=== PATIENT | male | born 1965 | race Caucasian/White ===

== ENCOUNTER 2016-12-19 09:49 | Outpatient (RCR) | payer BC ==
--- OUTSIDE RECORDS SUMMARY | 2016-09-24 12:52 | XMS REPORT | Continuity of Care Document ---
Author Author [facility] Organization [facility] Address Unknown Phone Unavailable Care Team Providers Care Inventory Accountant Name Role Phone MESERET MARTINEZ MD PCP Insurance Providers Payer Name Policy Number Subscriber Name Relationship [employer] [id number] Catherine Roberts 20 Self / Same As Patient Advance Directives Directive Response Recorded Date/Time Advance Directives No 07/13/12 11:43am Health Care Power of Groover And Turner No 07/13/12 11:43am Organ Donor No 07/13/12 11:43am Problems No known problems or medical conditions. Medications Medication Dose Route Sig Days/Qty Instructions Order Date Discontinued Date Status Levothyroxine Sodium (Levothroid) 1 Each PO DAILY 10/27/11 Active Dexlansoprazole 30 Mg PO DAILY 10/27/11 Active Social History No social history. Hospital Discharge Instructions No hospital discharge instructions. Plan of Care No plan of care. Functional Status No functional status results. Allergies, Adverse Reactions, Alerts Allergen Type Severity Reaction Status Last Updated No Known Drug Allergies Active 10/27/11 Immunizations Name Given Type Date of Influenza Vaccine 07/10/11 Historical Vital Signs No known vital signs results. Results Laboratory Results Test Name Result Units Flags Reference Collection Date/Time Result Date/ Time Comments White Blood Count 7.1 10^3/uL 4.3-11.0 08/02/2014 9:08/02/2014 9: 19am Red Blood Count 5.00 10^6/uL 4.35-5.85 08/02/2014 9:08/02/2014 9: 19am Hemoglobin 15.0 G/DL 13.3-17.7 08/02/2014 9:08/02/2014 9:19am Hematocrit 42 % 40-54 08/02/2014 9:08/02/2014 9:19am Mean Corpuscular Volume 84 FL 80-99 08/02/2014 9:08/02/2014 9: 19am Mean Corpuscular Hemoglobin 30 PG 25-34 08/02/2014 9:08/02/2014 9: 19am Mean Corpuscular Hemoglobin Concent 36 G/DL 32-36 08/02/2014 9: 9:19am Red Cell Distribution Width 13.3 % 10.0-14.5 08/02/2014 9:2013 9:19am Platelet Count 211 10^3/uL 130-400 08/02/2014 9:08/02/2014 9:19am Mean Platelet Volume 10.7 FL H 7.4-10.4 08/02/2014 9:08/02/2014 9: 19am Neutrophils (%) (Auto) 68 % 42-75 08/02/2014 9:08/02/2014 9:19am Lymphocytes (%) (Auto) 20 % 12-44 08/02/2014 9:08/02/2014 9:19am Monocytes (%) (Auto) 9 % 0-12 08/02/2014 9:08/02/2014 9:19am Eosinophils (%) (Auto) 2 % 0-10 08/02/2014 9:08/02/2014 9:19am Basophils (%) (Auto) 1 % 0-10 08/02/2014 9:08/02/2014 9:19am Neutrophils # (Auto) 4.9 X 10^3 1.8-7.8 08/02/2014 9:08/02/2014 9: 19am Lymphocytes # (Auto) 1.5 X 10^3 1.0-4.0 08/02/2014 9:08/02/2014 9: 19am Monocytes # (Auto) 0.6 X 10^3 0.0-1.0 08/02/2014 9:08/02/2014 9: 19am Eosinophils # (Auto) 0.2 10^3/uL 0.0-0.3 08/02/2014 9:08/02/2014 9 :19am Basophils # (Auto) 0.0 10^3/uL 0.0-0.1 08/02/2014 9:08/02/2014 9: 19am Sodium Level 140 MMOL/L 135-145 08/02/2014 9:08/02/2014 9:42am Potassium Level 4.3 MMOL/L 3.6-5.0 08/02/2014 9:08/02/2014 9:42am Chloride Level 108 MMOL/L H 98-107 08/02/2014 9:08/02/2014 9:42am Carbon Dioxide Level 21 MMOL/L 21-32 08/02/2014 9:08/02/2014 9: 42am Blood Urea Nitrogen 15 MG/DL 7-18 08/02/2014 9:08/02/2014 9:42am Creatinine 1.24 MG/DL 0.60-1.30 08/02/2014 9:08/02/2014 9:42am BUN/Creatinine Ratio 12 08/02/2014 9:08/02/2014 9:42am Estimat Glomerular Filtration Rate > 60 08/02/2014 9:2013 9:42am GFR INTERPRETIVE DATA UNITS FOR ESTIMATED GFR (eGFR): mL/min/1.73 M2 REFERENCE RANGE FOR ESTIMATED GFR (eGFR) eGFR NORMAL eGFR >60 MODERATELY DECREASED eGFR 30-59 SEVERLY DECREASED eGFR 15-29 KIDNEY FAILURE <15 (OR DIALYSIS) Glucose Level 101 MG/DL 70-105 08/02/2014 9:08/02/2014 9:42am Calcium Level 9.3 MG/DL 8.5-10.1 08/02/2014 9:08/02/2014 9:42am Total Bilirubin 0.6 MG/DL 0.1-1.0 08/02/2014 9:08/02/2014 9:42am Alkaline Phosphatase 54 U/L 40-136 08/02/2014 9:14am 08/02/2014 9:42am Aspartate Amino Transf (AST/SGOT) 22 U/L 5-34 08/02/2014 9:14am 2013 9:42am Alanine Aminotransferase (ALT/SGPT) 36 U/L 0-55 08/02/2014 9:14am 08/02 9:42am Lactate Dehydrogenase 297 U/L H 125-220 08/02/2014 9:14am 08/02/2014 9: 42am Total Protein 7.0 G/DL 6.4-8.2 08/02/2014 9:14am 08/02/2014 9:42am Albumin 4.2 G/DL 3.2-4.5 08/02/2014 9:14am 08/02/2014 9:42am Procedures No known history of procedures. Encounters Encounter Location Date/Time Discharged Recurring Via [facility] 08/02/14 9:20am
--- OUTSIDE RECORDS SUMMARY | 2016-11-20 10:03 | XMS REPORT | Continuity of Care Document ---
Author Author [facility] Organization [facility] Address Unknown Phone Unavailable Care Team Providers Care Groover Operator Name Role Phone MESERET MARTINEZ MD PCP Insurance Providers Payer Name Policy Number Subscriber Name Relationship [employer] [id number] Catherine Roberts 20 Self / Same As Patient Advance Directives Directive Response Recorded Date/Time Advance Directives No 07/13/12 11:43am Health Care Power of Public Health Program Manager No 07/13/12 11:43am Organ Donor No 07/13/12 [...] Encounters Encounter Location Date/Time Discharged Recurring Via [facility] 08/02/14 9:20am
[2016-11-20 10:23] LABS: BASOPHILS % (AUTO) 1 % (0-10); EOSINOPHILS # (AUTO) 0.2 10^3/uL (0.0-0.3); EOSINOPHILS % (AUTO) 3 % (0-10); LYMPHOCYTES # (AUTO) 1.5 X 10^3 (1.0-4.0); LYMPHOCYTES % (AUTO) 25 % (12-44); MEAN CORPUSCULAR HEMOGLOBIN 29 PG (25-34); MEAN CORPUSCULAR HGB CONC 35 G/DL (32-36); MEAN CORPUSCULAR VOLUME 85 FL (80-99); MEAN PLATELET VOLUME 10.3 FL (7.4-10.4); MONOCYTES # (AUTO) 0.5 X 10^3 (0.0-1.0); MONOCYTES % (AUTO) 9 % (0-12); NEUTROPHILS # (AUTO) 3.8 X 10^3 (1.8-7.8); NEUTROPHILS % (AUTO) 63 % (42-75); PLATELET COUNT 235 10^3/uL (130-400)
[2016-11-20 11:07] LABS: ALANINE AMINOTRANSFERASE 25 U/L (0-55); ALBUMIN 4.5 G/DL (3.2-4.5); ANION GAP 9 MMOL/L (5-14); ASPARTATE AMINO TRANSFERASE 17 U/L (5-34); BILIRUBIN,TOTAL 0.6 MG/DL (0.1-1.0); BLOOD UREA NITROGEN 16 MG/DL (7-18); BUN/CREATININE RATIO 13; CALCIUM 9.6 MG/DL (8.5-10.1); CARBON DIOXIDE 25 MMOL/L (21-32); CHLORIDE 103 MMOL/L (98-107); CREATININE SERUM 1.23 MG/DL (0.60-1.30); GFR ESTIMATED > 60; GLUCOSE 90 MG/DL (70-105); LACTATE DEHYDROGENASE 208 U/L (125-220); POTASSIUM 4.5 MMOL/L (3.6-5.0); SODIUM 137 MMOL/L (135-145); TOTAL PROTEIN 7.2 G/DL (6.4-8.2)
[2016-11-21 07:41] LABS: ALPHA-FETO PROTEIN MARKER 2.8 ng/mL (1.5-10.0); HCG TUMOR MARKER <2 mIU/mL (0-4)
[~2016-12-19 09:49] MED LIST: DEXL30CA2 PO; LEVO125T6 PO
== END 2017-02-18 | disposition home or self-care (01) ==
LOC: ONC 09:49
PROVIDERS: ATTEND Internal Medicine Hematology & Oncology
DX: C62.11 Malignant neoplasm of descended right testis (principal); N18.3 Chronic kidney disease, stage 3 (moderate); Z85.79 Personal history of other malignant neoplasms of lymphoid, hematopoietic and related tissues; Z92.3 Personal history of irradiation; Z92.21 Personal history of antineoplastic chemotherapy; Z79.899 Other long term (current) drug therapy
CPT/HCPCS: 36415; 80053; 82105; 83615; 84403; 84702; 85025; 99213

== ENCOUNTER → 2016-12-23 | Outpatient (CLI) | payer BC ==
--- OUTSIDE RECORDS SUMMARY | 2016-12-23 08:47 | XMS REPORT | Continuity of Care Document ---
Author Author [facility] Organization [facility] Address Unknown Phone Unavailable Care Team Providers Care Oil Field Pipeline Supervisor Name Role Phone MESERET MARTINEZ MD PCP Insurance Providers Payer Name Policy Number Subscriber Name Relationship [employer] [id number] Catherine Roberts 20 Self / Same As Patient Advance Directives Directive Response Recorded Date/Time Advance Directives No 07/13/12 11:43am Health Care Power of Poultry Veterinarian No 07/13/12 11:43am Organ Donor No 07/13/12 [...] Encounters Encounter Location Date/Time Discharged Recurring Via [facility] 08/02/14 9:20am
--- NOTE | 2016-12-23 15:23 | Diagnostic Imaging Report ---
EXAMINATION: PET-CT TECHNIQUE: Serum glucose level at the time of the study is: 99 mg/dL. 11.6 mCi of FDG was administered intravenously followed by obtaining PET images with corresponding noncontrast CT scan images. The CT scan was performed for anatomic correlation and attenuation correction and was not performed according to the diagnostic protocol of the areas covered. The scan was performed from the head to mid thighs. INDICATION: Seminoma restaging. Comparison PET of 11/14/2014. FINDINGS: There is symmetric uptake in the brain. Symmetric uptake in the submandibular glands are probably physiologic as well as in the floor of the mouth anteriorly probably within the genu hyoid the and the other floor of the mouth muscles. No suspicious hypermetabolic mass. There is no suspicious hypermetabolic mass in the chest seen. Reduced counts noted around the lower abdomen with similar effect also noted on the non-attenuation correction images. It could obscure a subtle hypermetabolic mass. The bowel activity seen is mild, nonfocal and is suggestive of physiologic uptake. Urinary tract and bladder excretion is noted as expected. IMPRESSION: No suspicious hypermetabolic mass to suggest tumor recurrence. Dictated by: Dictated on workstation # [id number]
== END ==
LOC: RAD 08:43
PROVIDERS: ATTEND Nurse Practitioner Adult Health
DX: C62.11 Malignant neoplasm of descended right testis (principal); R10.13 Epigastric pain; Z85.79 Personal history of other malignant neoplasms of lymphoid, hematopoietic and related tissues

== ENCOUNTER 2017-05-29 10:08 | Outpatient (RCR) | payer BC ==
[2017-05-21 09:22] LABS: BASOPHILS % (AUTO) 1 % (0-10); EOSINOPHILS # (AUTO) 0.2 10^3/uL (0.0-0.3); EOSINOPHILS % (AUTO) 3 % (0-10); LYMPHOCYTES # (AUTO) 1.4 X 10^3 (1.0-4.0); LYMPHOCYTES % (AUTO) 29 % (12-44); MEAN CORPUSCULAR HEMOGLOBIN 29 PG (25-34); MEAN CORPUSCULAR HGB CONC 34 G/DL (32-36); MEAN CORPUSCULAR VOLUME 86 FL (80-99); MEAN PLATELET VOLUME 10.9 FL (7.4-10.4); MONOCYTES # (AUTO) 0.6 X 10^3 (0.0-1.0); MONOCYTES % (AUTO) 11 % (0-12); NEUTROPHILS # (AUTO) 2.8 X 10^3 (1.8-7.8); NEUTROPHILS % (AUTO) 56 % (42-75); PLATELET COUNT 231 10^3/uL (130-400); RED BLOOD COUNT 5.33 10^6/uL (4.35-5.85); RED CELL DISTRIBUTION WIDTH 13.6 % (10.0-14.5)
[2017-05-21 09:56] LABS: ALBUMIN 4.2 GM/DL (3.2-4.5); BILIRUBIN,TOTAL 0.7 MG/DL (0.1-1.0); CALCIUM 9.3 MG/DL (8.5-10.1); CREATININE SERUM 1.36 MG/DL (0.60-1.30); POTASSIUM 4.3 MMOL/L (3.6-5.0); TOTAL PROTEIN 7.2 GM/DL (6.4-8.2)
[2017-05-22 06:55] LABS: HCG TUMOR MARKER <2 mIU/mL (0-4)
[2017-05-22 06:59] LABS: ALPHA-FETO PROTEIN MARKER 3.7 ng/mL (1.5-10.0)
== END 2017-08-08 | disposition home or self-care (01) ==
LOC: ONC 10:08
PROVIDERS: ATTEND Internal Medicine Hematology & Oncology
DX: C62.11 Malignant neoplasm of descended right testis (principal); N18.3 Chronic kidney disease, stage 3 (moderate); Z85.79 Personal history of other malignant neoplasms of lymphoid, hematopoietic and related tissues; Z92.3 Personal history of irradiation; Z92.21 Personal history of antineoplastic chemotherapy; Z79.899 Other long term (current) drug therapy
CPT/HCPCS: 36415; 80053; 82105; 83615; 84702; 85025; 99213

== ENCOUNTER 2018-01-14 09:06 | Outpatient (RCR) | payer BC ==
[2018-01-14 09:34] LABS: BASOPHILS # (AUTO) 0.1 10^3/uL (0.0-0.1); BASOPHILS % (AUTO) 1 % (0-10); EOSINOPHILS # (AUTO) 0.2 10^3/uL (0.0-0.3); EOSINOPHILS % (AUTO) 3 % (0-10); HEMATOCRIT 46 % (40-54); HEMOGLOBIN 15.8 G/DL (13.3-17.7); LYMPHOCYTES # (AUTO) 1.7 X 10^3 (1.0-4.0); LYMPHOCYTES % (AUTO) 31 % (12-44); MEAN CORPUSCULAR HEMOGLOBIN 29 PG (25-34); MEAN CORPUSCULAR HGB CONC 34 G/DL (32-36); MEAN CORPUSCULAR VOLUME 84 FL (80-99); MEAN PLATELET VOLUME 10.8 FL (7.4-10.4); MONOCYTES # (AUTO) 0.4 X 10^3 (0.0-1.0); MONOCYTES % (AUTO) 8 % (0-12); NEUTROPHILS % (AUTO) 57 % (42-75); PLATELET COUNT 220 10^3/uL (130-400); RED BLOOD COUNT 5.44 10^6/uL (4.35-5.85); RED CELL DISTRIBUTION WIDTH 13.5 % (10.0-14.5); WHITE BLOOD COUNT 5.4 10^3/uL (4.3-11.0)
[2018-01-14 09:51] LABS: ALANINE AMINOTRANSFERASE 27 U/L (0-55); ALBUMIN 4.2 GM/DL (3.2-4.5); ALKALINE PHOSPHATASE 49 U/L (40-136); BILIRUBIN,TOTAL 0.5 MG/DL (0.1-1.0); BUN/CREATININE RATIO 19; CALCIUM 9.3 MG/DL (8.5-10.1); CARBON DIOXIDE 23 MMOL/L (21-32); CHLORIDE 107 MMOL/L (98-107); CREATININE SERUM 1.13 MG/DL (0.60-1.30); GFR ESTIMATED > 60; GLUCOSE 107 MG/DL (70-105); POTASSIUM 4.1 MMOL/L (3.6-5.0); SODIUM 138 MMOL/L (135-145); TOTAL PROTEIN 7.3 GM/DL (6.4-8.2)
== END 2018-04-14 | disposition home or self-care (01) ==
LOC: ONC 09:06
PROVIDERS: ATTEND Internal Medicine Hematology & Oncology
DX: C62.11 Malignant neoplasm of descended right testis (principal); N18.3 Chronic kidney disease, stage 3 (moderate); Z85.79 Personal history of other malignant neoplasms of lymphoid, hematopoietic and related tissues; Z92.3 Personal history of irradiation; Z92.21 Personal history of antineoplastic chemotherapy; Z79.899 Other long term (current) drug therapy
CPT/HCPCS: 80053; 82105; 83615; 84702; 85025; 99213

== ENCOUNTER → 2019-01-13 | Outpatient (CLI) | payer BC ==
[2019-01-13 09:33] LABS: BASOPHILS % (AUTO) 1 % (0-10); EOSINOPHILS # (AUTO) 0.2 10^3/uL (0.0-0.3); EOSINOPHILS % (AUTO) 4 % (0-10); HEMATOCRIT 45 % (40-54); LYMPHOCYTES # (AUTO) 1.4 X 10^3 (1.0-4.0); LYMPHOCYTES % (AUTO) 27 % (12-44); MEAN CORPUSCULAR HEMOGLOBIN 30 PG (25-34); MEAN CORPUSCULAR HGB CONC 35 G/DL (32-36); MEAN CORPUSCULAR VOLUME 85 FL (80-99); MEAN PLATELET VOLUME 10.4 FL (7.4-10.4); MONOCYTES # (AUTO) 0.4 X 10^3 (0.0-1.0); MONOCYTES % (AUTO) 8 % (0-12); NEUTROPHILS # (AUTO) 3.1 X 10^3 (1.8-7.8); NEUTROPHILS % (AUTO) 60 % (42-75); PLATELET COUNT 243 10^3/uL (130-400); RED CELL DISTRIBUTION WIDTH 12.9 % (10.0-14.5); WHITE BLOOD COUNT 5.1 10^3/uL (4.3-11.0)
[2019-01-13 10:03] LABS: ALANINE AMINOTRANSFERASE 24 U/L (0-55); ALBUMIN 4.4 GM/DL (3.2-4.5); ALKALINE PHOSPHATASE 54 U/L (40-136); BILIRUBIN,TOTAL 0.5 MG/DL (0.1-1.0); BUN/CREATININE RATIO 14; CALCIUM 9.4 MG/DL (8.5-10.1); CARBON DIOXIDE 22 MMOL/L (21-32); CHLORIDE 107 MMOL/L (98-107); GFR ESTIMATED > 60; GLUCOSE 126 MG/DL (70-105); POTASSIUM 4.1 MMOL/L (3.6-5.0); SODIUM 139 MMOL/L (135-145); TOTAL PROTEIN 7.1 GM/DL (6.4-8.2)
== END ==
LOC: EDSTATUS 04-15 15:23 → ONC 09:09
PROVIDERS: ATTEND Internal Medicine Hematology & Oncology
DX: C62.11 Malignant neoplasm of descended right testis (principal); N18.3 Chronic kidney disease, stage 3 (moderate); Z85.79 Personal history of other malignant neoplasms of lymphoid, hematopoietic and related tissues; Z92.3 Personal history of irradiation; Z92.21 Personal history of antineoplastic chemotherapy; Z79.899 Other long term (current) drug therapy
CPT/HCPCS: 36415; 80053; 82105; 82232; 83615; 84443; 84702; 85025; 99213

== ENCOUNTER → 2020-01-11 | Outpatient (CLI) | payer BC, OTHER ==
[2020-01-11 09:18] LABS: BASOPHILS % (AUTO) 1 % (0-10); EOSINOPHILS # (AUTO) 0.2 10^3/uL (0.0-0.3); EOSINOPHILS % (AUTO) 5 % (0-10); HEMATOCRIT 46 % (40-54); HEMOGLOBIN 15.2 G/DL (13.3-17.7); LYMPHOCYTES # (AUTO) 1.7 X 10^3 (1.0-4.0); LYMPHOCYTES % (AUTO) 40 % (12-44); MEAN CORPUSCULAR HEMOGLOBIN 29 PG (25-34); MEAN CORPUSCULAR HGB CONC 33 G/DL (32-36); MEAN CORPUSCULAR VOLUME 86 FL (80-99); MONOCYTES # (AUTO) 0.4 X 10^3 (0.0-1.0); MONOCYTES % (AUTO) 10 % (0-12); NEUTROPHILS # (AUTO) 1.8 X 10^3 (1.8-7.8); NEUTROPHILS % (AUTO) 44 % (42-75); PLATELET COUNT 203 10^3/uL (130-400); RED CELL DISTRIBUTION WIDTH 13.5 % (10.0-14.5); WHITE BLOOD COUNT 4.1 10^3/uL (4.3-11.0)
[2020-01-11 09:51] LABS: ALBUMIN 4.2 GM/DL (3.2-4.5); BILIRUBIN,TOTAL 0.5 MG/DL (0.1-1.0); CREATININE SERUM 1.3 MG/DL (0.60-1.30); POTASSIUM 4.4 MMOL/L (3.6-5.0); TOTAL PROTEIN 7.1 GM/DL (6.4-8.2)
== END ==
LOC: ONC 09:20
PROVIDERS: ATTEND Internal Medicine Hematology & Oncology
DX: C62.11 Malignant neoplasm of descended right testis (principal); E03.9 Hypothyroidism, unspecified; Z92.21 Personal history of antineoplastic chemotherapy; Z90.79 Acquired absence of other genital organ(s)
CPT/HCPCS: 80053; 82105; 83615; 84443; 84702; 85025; 99213

== ENCOUNTER → 2021-01-24 | Outpatient (CLI) | payer OTHER ==
[2021-01-24 11:14] LABS: BASOPHILS # (AUTO) 0.1 10^3/uL (0.0-0.1); BASOPHILS % (AUTO) 1 % (0-10); EOSINOPHILS # (AUTO) 0.2 10^3/uL (0.0-0.3); EOSINOPHILS % (AUTO) 3 % (0-10); HEMATOCRIT 49 % (40-54); HEMOGLOBIN 16.5 g/dL (13.3-17.7); LYMPHOCYTES # (AUTO) 1.7 10^3/uL (1.0-4.0); LYMPHOCYTES % (AUTO) 31 % (12-44); MEAN CORPUSCULAR HEMOGLOBIN 30 pg (25-34); MEAN CORPUSCULAR HGB CONC 34 g/dL (32-36); MEAN CORPUSCULAR VOLUME 87 fL (80-99); MEAN PLATELET VOLUME 10.4 fL (9.0-12.2); MONOCYTES # (AUTO) 0.4 10^3/uL (0.0-1.0); MONOCYTES % (AUTO) 7 % (0-12); NEUTROPHILS # (AUTO) 3.2 10^3/uL (1.8-7.8); NEUTROPHILS % (AUTO) 58 % (42-75); PLATELET COUNT 242 10^3/uL (130-400); WHITE BLOOD COUNT 5.5 10^3/uL (4.3-11.0)
[2021-01-24 11:32] LABS: ALBUMIN 4.5 GM/DL (3.2-4.5); BILIRUBIN,TOTAL 0.5 MG/DL (0.1-1.0); CALCIUM 10.1 MG/DL (8.5-10.1); CREATININE SERUM 1.37 MG/DL (0.60-1.30); POTASSIUM 4.6 MMOL/L (3.6-5.0); TOTAL PROTEIN 7.8 GM/DL (6.4-8.2)
== END ==
LOC: ONC 10:52
PROVIDERS: ATTEND Internal Medicine Hematology & Oncology
DX: C62.11 Malignant neoplasm of descended right testis (principal); E03.9 Hypothyroidism, unspecified; M10.9 Gout, unspecified; N18.30 Chronic kidney disease, stage 3 unspecified; Z85.89 Personal history of malignant neoplasm of other organs and systems; Z92.3 Personal history of irradiation; Z90.79 Acquired absence of other genital organ(s); Z92.21 Personal history of antineoplastic chemotherapy
CPT/HCPCS: 80053; 82105; 83615; 84443; 84702; 85025; G0463; 99213